=== PATIENT | female | born 1965 | race Caucasian/White ===

== ENCOUNTER 2017-05-27 18:43 | Emergency (ER) | payer OTHER ==
[~2017-05-27] VITALS: Ht 167.6 cm; Wt 149.0 kg
[2017-05-27 19:29] LABS: HEMATOCRIT 41.1 % (36.0-46.0); MCH 29.1 PG (29.0-34.0); MCHC 33.8 G/DL (30.0-36.0); MCV 86.2 FL (83-99); MEAN PLAT.VOLUME 9.5 uM^3 (9.5-12.4); PLATELET COUNT 187 K/uL (156-360); RBC DIS.WIDTH-CV 13.7 % (11.8-14.6); RED BLOOD COUNT 4.77 M/uL (3.80-5.20); WHITE BLOOD COUNT 11.5 K/uL (4.1-10.2)
[2017-05-27 19:40] LABS: CHLORIDE 103 mEq/L (99-109); POTASSIUM 4.1 mEq/L (3.7-5.4); SODIUM 137 mEq/L (136-147)
[2017-05-27 19:42] LABS: GLUCOSE 110 mg/dL (70-99)
[2017-05-27 19:44] LABS: ANION GAP 10 MEQ/L (2-14)
[2017-05-27 19:46] LABS: GFR ESTIMATE (CALCULATED) > 59 mL/min/
[2017-05-27 19:47] LABS: UREA NITROGEN (BUN) 8 mg/dL (9-23)
[2017-05-27 20:24] LABS: ABS NEUTROPHIL COUNT 6.4; ANISOCYTOSIS 1+; ATYPICAL LYMPHOCYTE 18.2 %; BAND NEUTROPHILS 4.5 % (0-8.0); EOSINOPHIL ABS CT 0.1; EOSINOPHILS 0.9 % (0-5.0); INSTRUMENT ABS NEUTROPHIL CT 3.9 K/uL; MICROCYTOSIS 1+; SEG.NEUTROPHILS 50.9 % (46.0-76.0); SMUDGE CELLS 64.5
[2017-05-27 20:38] LABS: ADD MIUA? YES; BILIRUBIN NEGATIVE; BLOOD NEGATIVE; COLOR YELLOW ((YELLOW)); GLUCOSE (STRIP) NEGATIVE; KETONES NEGATIVE; LEUKOCYTES TRACE; NITRITE NEGATIVE; PROTEIN (STRIP) 30; SPECIFIC GRAVITY 1.017 (1.000-1.030); UROBILINOGEN 0.2 MG/DL (0.2-1.0)
[2017-05-27 20:50] LABS: BACTERIA RARE /HPF; EPITHELIAL CELLS 1+ /HPF; HYALINE CASTS 0-5 /LPF; MUCUS 2+ /LPF; RED BLOOD CELLS 0-5 /HPF (0-5); UCUL ADDED? YES
[2017-05-27] MEDS ORDERED: KEFLEX500 MG PO (23:53)
[2017-05-28 00:35] VITALS: BP 138/108
== END 2017-05-28 00:36 | disposition home or self-care (01) ==
LOC: EME 18:43
DX: R06.00 Dyspnea, unspecified (principal); N39.0 Urinary tract infection, site not specified; Z88.1 Allergy status to other antibiotic agents
CPT/HCPCS: 71275; 80048; 81003; 83605; 85025; 87086; 93005; 99281; 99284; J7030

== ENCOUNTER 2017-05-30 08:55 | Emergency (ER) | payer OTHER ==
[~2017-05-30] VITALS: Ht 165.1 cm; Wt 148.0 kg
[~2017-05-30 08:55] MED LIST: KEFLEX500 MG PO
[2017-05-30] MEDS ORDERED: ZOLPIDEM TARTRA10 MG PO (09:17)
[2017-05-30] MEDS ORDERED: SERTRALINE HCL100 MG PO (09:17)
[2017-05-30] MEDS ORDERED: KETOCONAZOLE60 GM TP (09:17)
[2017-05-30] MEDS ORDERED: GABAPENTIN300 MG PO (09:17)
[2017-05-30 09:38] LABS: HEMATOCRIT 39.8 % (36.0-46.0); MCH 29.1 PG (29.0-34.0); MCHC 33.7 G/DL (30.0-36.0); MCV 86.5 FL (83-99); MEAN PLAT.VOLUME 9.5 uM^3 (9.5-12.4); PLATELET COUNT 182 K/uL (156-360); RBC DIS.WIDTH-CV 14.1 % (11.8-14.6); RBC DIS.WIDTH-SD 44.3 % (39-53); WHITE BLOOD COUNT 8.7 K/uL (4.1-10.2)
[2017-05-30 09:49] LABS: CHLORIDE 105 mEq/L (99-109); POTASSIUM 3.7 mEq/L (3.7-5.4); SODIUM 139 mEq/L (136-147)
[2017-05-30 09:51] LABS: GLUCOSE 110 mg/dL (70-99)
[2017-05-30 09:52] LABS: ANION GAP 10 MEQ/L (2-14)
[2017-05-30 09:53] LABS: TOTAL BILIRUBIN 1.3 mg/dL (0.0-1.0)
[2017-05-30 09:55] LABS: ALKALINE PHOSPHATASE 83 IU/L (3-129); GFR ESTIMATE (CALCULATED) > 59 mL/min/
[2017-05-30 09:56] LABS: UREA NITROGEN (BUN) 8 mg/dL (9-23)
[2017-05-30 10:22] LABS: ABS NEUTROPHIL COUNT 3.9; BAND NEUTROPHILS 0.9 % (0-8.0); BASOPHILS 1.8 %; EOSINOPHIL ABS CT 0.5; EOSINOPHILS 5.3 % (0-5.0); INSTRUMENT ABS NEUTROPHIL CT 2.9 K/uL; LYMPHOCYTES 25.6 % (15.0-45.0); MYELOCYTES 1.8 %; PLAT.SUFFICIENCY ADEQUATE; SEG.NEUTROPHILS 44.2 % (46.0-76.0)
[2017-05-30] MEDS ORDERED: TYLENOL WITH C1 EACH PO (12:10)
[2017-05-30 12:34] VITALS: BP 160/99
[2017-05-31] MEDS ORDERED: TYLENOL EXTRA500 MG PO (21:17)
[2017-05-31] MEDS ORDERED: ADVIL,NUPRIN,M200 MG PO (21:17)
== END 2017-05-30 12:35 | disposition home or self-care (01) ==
LOC: EME 08:55
PROVIDERS: Emergency Medicine
DX: G62.9 Polyneuropathy, unspecified (principal); R51 Headache; E66.9 Obesity, unspecified; Z68.44 Body mass index [BMI] 60.0-69.9, adult
CPT/HCPCS: 70450; 80053; 85025; 93005; 99281; 99284; G8978 GP CI; G8979 GP CI; G8980 GP CI

== ENCOUNTER 2017-05-31 18:05 | Inpatient (IN) | payer OTHER ==
[~2017-05-31] VITALS: Ht 166.4 cm; Wt 147.6 kg
[~2017-05-31 18:05] MED LIST changes: +GABAPENTIN300 MG PO; +KETOCONAZOLE60 GM TP; +SERTRALINE HCL100 MG PO; +TYLENOL WITH C1 EACH PO; +ZOLPIDEM TARTRA10 MG PO
[2017-05-31 19:06] LABS: HEMATOCRIT 39.5 % (36.0-46.0); MCH 29.2 PG (29.0-34.0); MCHC 33.7 G/DL (30.0-36.0); MCV 86.6 FL (83-99); PLATELET COUNT 199 K/uL (156-360); RBC DIS.WIDTH-CV 14.5 % (11.8-14.6); RBC DIS.WIDTH-SD 45.8 % (39-53); RED BLOOD COUNT 4.56 M/uL (3.80-5.20); WHITE BLOOD COUNT 9.7 K/uL (4.1-10.2)
[2017-05-31 19:46] LABS: INTER. NORMALIZED RATIO 1.1; PROTHROMBIN TIME 11.6 SEC (10.2-12.9)
[2017-05-31 19:47] LABS: CHLORIDE 106 mEq/L (99-109); POTASSIUM 3.7 mEq/L (3.7-5.4); SODIUM 139 mEq/L (136-147)
[2017-05-31 19:49] LABS: GLUCOSE 111 mg/dL (70-99)
[2017-05-31 19:50] LABS: ANION GAP 11 MEQ/L (2-14)
[2017-05-31 19:53] LABS: GFR ESTIMATE (CALCULATED) > 59 mL/min/; UREA NITROGEN (BUN) 9 mg/dL (9-23)
[2017-05-31 20:14] LABS: ANISOCYTOSIS 2+; ATYPICAL LYMPHOCYTE 19.5 %; BAND NEUTROPHILS 1.8 % (0-8.0); EOSINOPHIL ABS CT 0.2; EOSINOPHILS 1.8 % (0-5.0); INSTRUMENT ABS NEUTROPHIL CT 3.1 K/uL; LYMPHOCYTES 18.6 % (15.0-45.0); MACROCYTES 1+; METAMYELOCYTES 0.9 %; MICROCYTOSIS 1+; POLYCHROMASIA 1+; SEG.NEUTROPHILS 49.5 % (46.0-76.0); SMUDGE CELLS 41.6
[2017-05-31] MEDS ORDERED: ADVIL,NUPRIN,M200 MG PO (21:17)
[2017-05-31] MEDS ORDERED: TYLENOL EXTRA500 MG PO (21:17)
[2017-05-31 23:27] LABS: APPEARANCE PINK
[2017-05-31 23:28] LABS: RED CELL AREA COUNTED 0.4; RED CELL COUNT 15550 /MM^3 (0-1); RED CELL DILUTION 1; WBC DILUTION 1; WHITE CELL COUNT 66 /MM^3 (0-5); WHITE CELL RAW COUNT 53
[2017-06-01] VITALS (7 sets, daily range): BP systolic 132–150; BP diastolic 62–93
[2017-06-01 00:30] LABS: CSF EOSINOPHILS 5 % (0-25); MONO RAW COUNT 4; MONONUCLEAR WBC'S 20 % (50-90); POLY RAW COUNT 15; POLYNUCLEAR WBC'S 75 % (0-3)
[2017-06-01 00:31] LABS: APPEARANCE (RECHECK) PINK; CSF TUBE NUMBER (RECHECK) TUBE #1
[2017-06-01 00:36] LABS: RED CELL AREA COUNTED 0.4; RED CELL COUNT (RECHECK) 7050 /MM^3 (0-1); RED CELL DILUTION 1
[2017-06-02 03:20] VITALS: BP 145/81
[2017-06-02 05:52] LABS: MCH 30.2 PG (29.0-34.0); MCHC 34.6 G/DL (30.0-36.0); MCV 87.3 FL (83-99); MEAN PLAT.VOLUME 9.7 uM^3 (9.5-12.4); PLATELET COUNT 185 K/uL (156-360); RBC DIS.WIDTH-CV 14.6 % (11.8-14.6); RBC DIS.WIDTH-SD 46.5 % (39-53); RED BLOOD COUNT 4.01 M/uL (3.80-5.20)
[2017-06-02 06:19] LABS: ANION GAP 9 MEQ/L (2-14); CHLORIDE 102 MEQ/L (99-109); GFR ESTIMATE (CALCULATED) > 59 mL/min/; GLUCOSE 112 mg/dL (70-99); POTASSIUM 3.6 MEQ/L (3.7-5.4); SAMPLE HEMOLYSIS CHECK 0; SAMPLE ICTERIC CHECK 0; SAMPLE LIPEMIA CHECK 0; SODIUM 133 MEQ/L (136-147); UREA NITROGEN (BUN) 9 mg/dL (9-23)
[2017-06-02 07:27] VITALS: BP 151/104
[2017-06-02 12:04] VITALS: BP 194/102
[2017-06-02 13:20] LABS: HTLV-I/-II Antibody Nonreactive (Nonreactive)
[2017-06-02 16:05] VITALS: BP 149/95
[2017-06-02 17:10] LABS: HSV CSF Spec Source CSF (())
[2017-06-02 20:48] VITALS: BP 147/86
[2017-06-03] VITALS (7 sets, daily range): BP systolic 134–184; BP diastolic 81–99
[2017-06-03 12:28] LABS: Cytomegalovirus IgM Antibody+ >240.00 AU/mL (<30.00)
[2017-06-04] VITALS (14 sets, daily range): BP systolic 141–173; BP diastolic 70–99
[2017-06-04 12:28] LABS: SS-A (SJOGREN'S) ANTIBODY 37 U/mL (0-99); SS-B (SJOGREN'S) ANTIBODY 24 U/mL (0-99)
[2017-06-04 14:46] LABS: HSV-1 IgG Antibody 2.02 Index (<0.90); HSV-2 IgG Antibody <0.90 Index (<0.90)
[2017-06-05] VITALS (9 sets, daily range): BP systolic 137–173; BP diastolic 80–99
[2017-06-05 07:03] LABS: HEMATOCRIT 36.7 % (36.0-46.0); MCH 30.3 PG (29.0-34.0); MCHC 34.9 G/DL (30.0-36.0); MEAN PLAT.VOLUME 9.4 uM^3 (9.5-12.4); PLATELET COUNT 212 K/uL (156-360); RBC DIS.WIDTH-CV 14.6 % (11.8-14.6); RED BLOOD COUNT 4.22 M/uL (3.80-5.20); WHITE BLOOD COUNT 7.2 K/uL (4.1-10.2)
[2017-06-05 07:48] LABS: ALKALINE PHOSPHATASE 64 IU/L (3-129); ANION GAP 7 MEQ/L (2-14); CHLORIDE 100 MEQ/L (99-109); GFR ESTIMATE (CALCULATED) > 59 mL/min/; GLUCOSE 103 mg/dL (70-99); POTASSIUM 4.9 MEQ/L (3.7-5.4); SAMPLE HEMOLYSIS CHECK 2; SAMPLE ICTERIC CHECK 0; SAMPLE LIPEMIA CHECK 0; SODIUM 128 MEQ/L (136-147); TOTAL BILIRUBIN 1.1 MG/DL (0.0-1.0); UREA NITROGEN (BUN) 11 mg/dL (9-23)
[2017-06-05 13:17] LABS: Varicella IgM 3.89 (<=0.90)
[2017-06-06 03:35] VITALS: BP 180/82
[2017-06-06 07:00] VITALS: BP 170/90
[2017-06-06 16:25] VITALS: BP 118/78
[2017-06-06 18:34] VITALS: BP 166/97
[2017-06-06 18:38] LABS: APPEARANCE CLEAR/COLORLESS; RED CELL AREA COUNTED 18; RED CELL COUNT 27 /MM^3 (0-1); RED CELL DILUTION 1; WBC AREA COUNTED 18; WBC DILUTION 1; WHITE CELL COUNT 9 /MM^3 (0-5); WHITE CELL RAW COUNT 16
[2017-06-06 18:39] LABS: APPEARANCE (RECHECK) CLEAR/COLORLESS; CSF EOSINOPHILS 0 % (0-25); CSF TUBE NUMBER (RECHECK) TUBE #1; MONONUCLEAR WBC'S 100 % (50-90); POLYNUCLEAR WBC'S 0 % (0-3); RED CELL AREA COUNTED 8; RED CELL COUNT (RECHECK) 351 /MM^3 (0-1); RED CELL DILUTION 1
[2017-06-06 19:39] VITALS: BP 136/85
[2017-06-06 21:43] LABS: Neutrophil Cytoplasmic Aby Negative (Negative)
[2017-06-06 23:31] VITALS: BP 146/79
[2017-06-07 03:09] VITALS: BP 148/72
[2017-06-07 07:19] VITALS: BP 132/75
[2017-06-07 12:00] LABS: LYME DISEASE SEROLOGY SCREEN NEGATIVE (NEGATIVE)
[2017-06-07 14:08] LABS: HEMATOCRIT 41.5 % (36.0-46.0); MCH 30.1 PG (29.0-34.0); MCHC 34.7 G/DL (30.0-36.0); MCV 86.8 FL (83-99); MEAN PLAT.VOLUME 9.1 uM^3 (9.5-12.4); RBC DIS.WIDTH-CV 14.8 % (11.8-14.6); RBC DIS.WIDTH-SD 46.5 % (39-53); RED BLOOD COUNT 4.78 M/uL (3.80-5.20); WHITE BLOOD COUNT 7.4 K/uL (4.1-10.2)
[2017-06-07 14:09] LABS: PLATELET COUNT 278 K/uL (156-360)
[2017-06-07 14:22] LABS: ALKALINE PHOSPHATASE 65 IU/L (3-129); ANION GAP 7 MEQ/L (2-14); CHLORIDE 94 MEQ/L (99-109); GFR ESTIMATE (CALCULATED) > 59 mL/min/; GLUCOSE 115 mg/dL (70-99); POTASSIUM 4.7 MEQ/L (3.7-5.4); SAMPLE HEMOLYSIS CHECK 0; SAMPLE ICTERIC CHECK 0; SAMPLE LIPEMIA CHECK 0; SODIUM 124 MEQ/L (136-147); TOTAL BILIRUBIN 0.9 MG/DL (0.0-1.0); UREA NITROGEN (BUN) 16 mg/dL (9-23)
[2017-06-07 15:37] VITALS: BP 141/85
[2017-06-07 19:13] VITALS: BP 123/99
[2017-06-07 23:33] VITALS: BP 129/71
[2017-06-08 06:21] VITALS: BP 138/89
[2017-06-08 08:15] VITALS: BP 140/91
[2017-06-08 13:58] LABS: CHLORIDE 95 mEq/L (99-109); POTASSIUM 4.8 mEq/L (3.7-5.4); SODIUM 127 mEq/L (136-147)
[2017-06-08 14:00] LABS: GLUCOSE 92 mg/dL (70-99)
[2017-06-08 14:01] LABS: ANION GAP 16 MEQ/L (2-14)
[2017-06-08 14:02] LABS: TOTAL BILIRUBIN 0.9 mg/dL (0.0-1.0)
[2017-06-08 14:04] LABS: ALKALINE PHOSPHATASE 72 IU/L (3-129); GFR ESTIMATE (CALCULATED) > 59 mL/min/
[2017-06-08 14:05] LABS: UREA NITROGEN (BUN) 16 mg/dL (9-23)
[2017-06-08 15:15] VITALS: BP 99/62
[2017-06-08 15:44] LABS: ANION GAP 7 MEQ/L (2-14); CHLORIDE 95 MEQ/L (99-109); POTASSIUM 4.7 MEQ/L (3.7-5.4); SAMPLE HEMOLYSIS CHECK 0; SAMPLE ICTERIC CHECK 0; SAMPLE LIPEMIA CHECK 0; SODIUM 124 MEQ/L (136-147); TOTAL BILIRUBIN 0.8 MG/DL (0.0-1.0)
[2017-06-08 15:50] LABS: ALKALINE PHOSPHATASE 70 IU/L (3-129); GFR ESTIMATE (CALCULATED) 55 mL/min/; GLUCOSE 111 mg/dL (70-99); UREA NITROGEN (BUN) 23 mg/dL (9-23)
[2017-06-08 17:29] LABS: TOXOPLASMA IgM (ACUTE ONLY)+ <8.00 AU/mL (<8.00)
[2017-06-08 23:32] VITALS: BP 109/62
[2017-06-09 07:35] VITALS: BP 112/70
[2017-06-09 14:02] LABS: ALKALINE PHOSPHATASE 61 IU/L (3-129); ANION GAP 9 MEQ/L (2-14); CHLORIDE 97 MEQ/L (99-109); GFR ESTIMATE (CALCULATED) > 59 mL/min/; GLUCOSE 114 mg/dL (70-99); POTASSIUM 4.7 MEQ/L (3.7-5.4); SAMPLE HEMOLYSIS CHECK 0; SAMPLE ICTERIC CHECK 0; SAMPLE LIPEMIA CHECK 0; SODIUM 127 MEQ/L (136-147); UREA NITROGEN (BUN) 27 mg/dL (9-23)
[2017-06-09 14:03] LABS: TOTAL BILIRUBIN 0.6 MG/DL (0.0-1.0)
[2017-06-09 15:25] VITALS: BP 104/70
[2017-06-10 00:01] VITALS: BP 128/79
[2017-06-10 07:30] VITALS: BP 138/76
[2017-06-10 09:22] LABS: ALKALINE PHOSPHATASE 68 IU/L (3-129); ANION GAP 7 MEQ/L (2-14); CHLORIDE 97 MEQ/L (99-109); GFR ESTIMATE (CALCULATED) > 59 mL/min/; GLUCOSE 99 mg/dL (70-99); POTASSIUM 4.7 MEQ/L (3.7-5.4); SAMPLE HEMOLYSIS CHECK 1; SAMPLE ICTERIC CHECK 0; SAMPLE LIPEMIA CHECK 0; SODIUM 128 MEQ/L (136-147); UREA NITROGEN (BUN) 23 mg/dL (9-23)
[2017-06-10 10:00] LABS: TOTAL BILIRUBIN 0.8 MG/DL (0.0-1.0)
[2017-06-10 15:50] VITALS: BP 132/90
[2017-06-11 00:54] VITALS: BP 133/78
[2017-06-11 06:55] VITALS: BP 130/87
[2017-06-11 15:34] VITALS: BP 124/74
[2017-06-12 07:11] LABS: ANION GAP 5 MEQ/L (2-14); CHLORIDE 101 MEQ/L (99-109); GFR ESTIMATE (CALCULATED) > 59 mL/min/; GLUCOSE 106 mg/dL (70-99); POTASSIUM 4.5 MEQ/L (3.7-5.4); SAMPLE HEMOLYSIS CHECK 0; SAMPLE ICTERIC CHECK 0; SAMPLE LIPEMIA CHECK 0; SODIUM 130 MEQ/L (136-147); UREA NITROGEN (BUN) 22 mg/dL (9-23)
[2017-06-12 07:38] VITALS: BP 151/88
[2017-06-12 13:55] VITALS: BP 141/95
[2017-06-13 01:20] VITALS: BP 130/85
[2017-06-13 07:15] VITALS: BP 145/77
[2017-06-13 07:22] LABS: ANION GAP 8 MEQ/L (2-14); CHLORIDE 101 MEQ/L (99-109); GFR ESTIMATE (CALCULATED) > 59 mL/min/; GLUCOSE 92 mg/dL (70-99); POTASSIUM 4.9 MEQ/L (3.7-5.4); SAMPLE HEMOLYSIS CHECK 0; SAMPLE ICTERIC CHECK 0; SAMPLE LIPEMIA CHECK 0; SODIUM 133 MEQ/L (136-147); UREA NITROGEN (BUN) 19 mg/dL (9-23)
[2017-06-13 14:45] VITALS: BP 119/79
[2017-06-13 19:45] VITALS: BP 125/75
[2017-06-14 00:41] VITALS: BP 111/64
[2017-06-14 04:26] VITALS: BP 116/76
[2017-06-14] MEDS ORDERED: LISINOPRIL20 MG PO (06:28)
[2017-06-14] MEDS ORDERED: MORPHINE SULFAT15 M1 PO (06:28)
[2017-06-14] MEDS ORDERED: AMLODIPINE BESYL5 MG PO (06:28)
[2017-06-14] MEDS ORDERED: OXYCODONE HCL5 MG PO (06:29)
[2017-06-14] MEDS ORDERED: GABAPENTIN600 MG PO (06:30)
[2017-06-14] MEDS ORDERED: QUETIAPINE FUMA25 MG PO (06:30)
[2017-06-14] MEDS ORDERED: TYLENOL REGULA325 MG PO (06:30)
[2017-06-14] MEDS ORDERED: BUSPAR10 MG PO (06:30)
[2017-06-14] MEDS ORDERED: SENNA PLUS TAB1 EACH PO (06:31)
[2017-06-14] MEDS ORDERED: BISACODYL5 MG PO (06:31)
[2017-06-14 07:23] VITALS: BP 116/65
[2017-06-14 08:10] LABS: ANION GAP 9 MEQ/L (2-14); CHLORIDE 100 MEQ/L (99-109); POTASSIUM 4.8 MEQ/L (3.7-5.4); SAMPLE HEMOLYSIS CHECK 1; SAMPLE ICTERIC CHECK 0; SAMPLE LIPEMIA CHECK 0; SODIUM 130 MEQ/L (136-147)
[2017-06-14 08:15] LABS: GFR ESTIMATE (CALCULATED) > 59 mL/min/; GLUCOSE 90 mg/dL (70-99); UREA NITROGEN (BUN) 18 mg/dL (9-23)
[2017-06-14 15:35] VITALS: BP 116/71
== END 2017-06-14 18:01 | DRG 94 ==
LOC: EME 18:05 → EDOF 22:13 → 2EAST 22:13 → 4EAST 22:13 → CANRESERV 22:14 → ENRESERV 22:14 → EDOF 23:07 → ENRESERV 06-01 00:13 → 4EAST 06-01 01:14 → ENRESERV 06-03 12:14 → 2EAST 06-03 15:12 → ENPENDDIS 06-14 17:00 → 2EAST 06-14 18:01
PROVIDERS: Emergency Medicine; Hospitalist; Internal Medicine; Radiology Diagnostic Radiology; Specialist
DX: G61.0 Guillain-Barre syndrome (principal); R27.0 Ataxia, unspecified; R29.2 Abnormal reflex; J96.90 Respiratory failure, unspecified, unspecified whether with hypoxia or hypercapnia; G51.0 Bell's palsy; Z79.899 Other long term (current) drug therapy; R20.2 Paresthesia of skin; E66.3 Overweight; R53.1 Weakness; E66.01 Morbid (severe) obesity due to excess calories; E22.2 Syndrome of inappropriate secretion of antidiuretic hormone; F41.9 Anxiety disorder, unspecified; G35 Multiple sclerosis; A69.20 Lyme disease, unspecified; K59.00 Constipation, unspecified; I10 Essential (primary) hypertension; R06.02 Shortness of breath
CPT/HCPCS: 62270; 70450; 70553; 72156; 74000; 77002; 77003; 80048; 80053; 82040 90; 82042 90; 82436; 82784 90; 82945; 83873 90; 83916 90; 83930; 83935; 84133; 84157; 84300; 85025; 85027; 85610; 85651; 86021 90; 86038; 86140; 86235; 86617 90; 86618; 86618 90; 86644 90; 86645 90; 86695 90; 86696 90; 86778 90; 86787 90; 86788 90; 86789 90; 86790 90; 87070; 87205; 87529 90; 89051; 92507 GN; 92526 GN; 92610 GN; 93005; 94799; 97530 GO; 97530 GP; 99281; 99284; 99285; G8978 GP CI; G8979 GP CI; G8980 GP CI; J0133; J0696; J1566; J1644; J1885; J2405; J7040; J7050